=== PATIENT | male | born 1955 | race Hispanic/Latino ===

== ENCOUNTER 2021-08-12 14:44 | Emergency (ER) | payer OTHER ==
[~2021-08-12] VITALS: Ht 167.6 cm; Wt 90.7 kg
[2021-08-12 15:00] VITALS: BP 100/70
== END 2021-08-12 15:59 | disposition left against medical advice (07) ==
LOC: EDH 14:44
DX: M54.2 Cervicalgia (principal); M25.569 Pain in unspecified knee; Z53.21 Procedure and treatment not carried out due to patient leaving prior to being seen by health care provider